=== PATIENT | female | born 1985 | race Caucasian/White ===

== ENCOUNTER 2017-02-18 12:04 | Emergency (ER) | payer OTHER ==
[~2017-02-18] VITALS: Ht 162.6 cm; Wt 90.7 kg
[~2017-02-18 12:04] MED LIST: FOLIC ACID1 MG PO
[2017-02-18] MEDS ORDERED: KEFLEX500 MG PO (15:53)
== END 2017-02-18 15:56 | disposition home or self-care (01) ==
LOC: ER 12:04
DX: N39.0 Urinary tract infection, site not specified (principal)

== ENCOUNTER 2017-05-14 08:33 | Emergency (ER) | payer OTHER ==
[~2017-05-14] VITALS: Ht 162.6 cm; Wt 104.3 kg
[~2017-05-14 08:33] MED LIST changes: +KEFLEX500 MG PO
== END 2017-05-14 13:12 | disposition home or self-care (01) ==
LOC: ER 08:33
DX: R51 Headache (principal); I10 Essential (primary) hypertension

== ENCOUNTER 2017-05-28 23:47 | Emergency (ER) | payer OTHER ==
[~2017-05-28] VITALS: Ht 162.6 cm; Wt 90.7 kg
[2017-05-29] MEDS ORDERED: KETO10TA2 PO (06:04)
[2017-05-29] MEDS ORDERED: ORPHENADRINE C100 MG PO (06:04)
[2017-05-29] MEDS ORDERED: INDERAL LA80 MG PO (06:04)
[2017-05-29] MEDS ORDERED: BUTALB-ACETAMI1 EAC2 PO (06:04)
== END 2017-05-29 06:40 | disposition home or self-care (01) ==
LOC: ER 23:47
DX: G43.809 Other migraine, not intractable, without status migrainosus (principal); M62.838 Other muscle spasm

== ENCOUNTER 2017-09-01 17:01 | Outpatient (CLI) | payer OTHER ==
[~2017-09-01 17:01] MED LIST changes: +BUTALB-ACETAMI1 EAC2 PO; +INDERAL LA80 MG PO; +KETO10TA2 PO; +ORPHENADRINE C100 MG PO
== END 2017-09-01 17:11 | disposition home or self-care (01) ==
LOC: LAB 17:01
DX: R53.1 Weakness (principal); Z11.3 Encounter for screening for infections with a predominantly sexual mode of transmission

== ENCOUNTER 2017-09-26 09:56 | Outpatient (CLI) | payer OTHER | END 2017-09-26 10:02 | disposition home or self-care (01) | LOC: LAB 09:56 | DX: M54.2 Cervicalgia (principal); M62.838 Other muscle spasm; N39.0 Urinary tract infection, site not specified ==

== ENCOUNTER 2017-09-28 08:00 | Outpatient (CLI) | payer OTHER | END 2017-09-28 08:24 | disposition home or self-care (01) | LOC: LAB 08:00 | DX: Z11.3 Encounter for screening for infections with a predominantly sexual mode of transmission (principal) ==

== ENCOUNTER 2018-01-18 19:36 | Emergency (ER) | payer OTHER ==
[~2018-01-18] VITALS: Ht 162.6 cm; Wt 90.7 kg
== END 2018-01-18 20:12 | disposition home or self-care (01) ==
LOC: ER 19:36
DX: H10.33 Unspecified acute conjunctivitis, bilateral (principal)

== ENCOUNTER 2018-03-03 09:21 | Outpatient (CLI) | payer OTHER | END 2018-03-03 09:23 | disposition home or self-care (01) | LOC: LAB 09:21 | DX: Z11.3 Encounter for screening for infections with a predominantly sexual mode of transmission (principal); Z11.4 Encounter for screening for human immunodeficiency virus [HIV] ==

== ENCOUNTER 2018-05-30 09:41 | Outpatient (CLI) | payer OTHER | END 2018-05-30 09:46 | disposition home or self-care (01) | LOC: LAB 09:41 | DX: J11.1 Influenza due to unidentified influenza virus with other respiratory manifestations (principal); J11.89 Influenza due to unidentified influenza virus with other manifestations ==

== ENCOUNTER 2018-09-09 08:47 | Outpatient (CLI) | payer OTHER | END 2018-09-09 08:53 | disposition home or self-care (01) | LOC: LAB 08:47 | DX: E78.49 Other hyperlipidemia (principal); R42 Dizziness and giddiness; Z00.00 Encounter for general adult medical examination without abnormal findings; E55.9 Vitamin D deficiency, unspecified; Z11.3 Encounter for screening for infections with a predominantly sexual mode of transmission; Z11.4 Encounter for screening for human immunodeficiency virus [HIV] ==

== ENCOUNTER 2018-09-12 10:57 | Outpatient (CLI) | payer OTHER | END 2018-09-12 11:04 | disposition home or self-care (01) | LOC: MAMO-SONO 10:57 | DX: N64.4 Mastodynia (principal); Z12.31 Encounter for screening mammogram for malignant neoplasm of breast; Z87.898 Personal history of other specified conditions ==

== ENCOUNTER 2018-12-07 22:28 | Emergency (ER) | payer OTHER ==
[~2018-12-07] VITALS: Ht 162.6 cm; Wt 90.7 kg
[2018-12-08] MEDS ORDERED: ZYNCOF 20-400120 ML PO (00:48)
[2018-12-08] MEDS ORDERED: DOLOGESIC 500-1 EACH PO (00:48)
[2018-12-08] MEDS ORDERED: ZITHROMAX500 MG PO (00:48)
== END 2018-12-08 00:54 | disposition home or self-care (01) ==
LOC: ER 22:28
DX: J06.9 Acute upper respiratory infection, unspecified (principal)

== ENCOUNTER 2019-04-04 09:38 | Emergency (ER) | payer OTHER ==
[~2019-04-04] VITALS: Ht 162.6 cm; Wt 106.6 kg
[~2019-04-04 09:38] MED LIST changes: +DOLOGESIC 500-1 EACH PO; +ZITHROMAX500 MG PO; +ZYNCOF 20-400120 ML PO
[2019-04-04] MEDS ORDERED: ZITHROMAX500 MG PO (13:04)
== END 2019-04-04 13:10 | disposition home or self-care (01) ==
LOC: ER 09:38
DX: B34.9 Viral infection, unspecified (principal); B96.0 Mycoplasma pneumoniae [M. pneumoniae] as the cause of diseases classified elsewhere

== ENCOUNTER 2019-05-03 12:26 | Outpatient (CLI) | payer OTHER | END 2019-05-03 13:00 | disposition home or self-care (01) | LOC: SONOGRAMA 12:26 | DX: O03.30 Unspecified complication following incomplete spontaneous abortion (principal) ==

== ENCOUNTER 2019-05-31 20:08 | Emergency (ER) | payer OTHER ==
[~2019-05-31] VITALS: Ht 162.6 cm; Wt 90.7 kg
== END 2019-05-31 23:38 | disposition home or self-care (01) ==
LOC: ER 20:08
DX: K76.0 Fatty (change of) liver, not elsewhere classified (principal); R10.2 Pelvic and perineal pain

== ENCOUNTER → 2019-09-06 06:06 | Outpatient (CLI) | payer OTHER | END | disposition home or self-care (01) | LOC: LAB 06:06 | PROVIDERS: ATTEND General Practice | DX: R42 Dizziness and giddiness (principal); Z00.00 Encounter for general adult medical examination without abnormal findings; E78.49 Other hyperlipidemia; E55.9 Vitamin D deficiency, unspecified; Z11.3 Encounter for screening for infections with a predominantly sexual mode of transmission; Z11.4 Encounter for screening for human immunodeficiency virus [HIV] ==

== ENCOUNTER 2019-09-28 13:41 | Outpatient (CLI) | payer OTHER | END 2019-09-28 13:43 | disposition home or self-care (01) | LOC: MAMO-SONO 13:41 | PROVIDERS: ATTEND General Practice | DX: Z12.31 Encounter for screening mammogram for malignant neoplasm of breast (principal); N64.4 Mastodynia ==

== ENCOUNTER 2019-11-14 06:27 | Outpatient (CLI) | payer OTHER | END 2019-11-14 06:34 | disposition home or self-care (01) | LOC: LAB 06:27 | PROVIDERS: ATTEND Obstetrics & Gynecology | DX: E04.1 Nontoxic single thyroid nodule (principal); N95.1 Menopausal and female climacteric states; E28.39 Other primary ovarian failure; E55.9 Vitamin D deficiency, unspecified; E78.00 Pure hypercholesterolemia, unspecified ==

== ENCOUNTER 2019-11-14 15:15 | Outpatient (CLI) | payer OTHER | END 2019-11-14 15:22 | disposition home or self-care (01) | LOC: SONOGRAMA 15:15 → MAMO-SONO 15:30 | PROVIDERS: ATTEND Obstetrics & Gynecology | DX: N84.0 Polyp of corpus uteri (principal) ==

== ENCOUNTER 2019-11-27 13:00 | Outpatient (CLI) | payer OTHER | END 2019-11-27 17:57 | disposition home or self-care (01) | LOC: PPH VACUNA 13:00 | DX: Z23 Encounter for immunization (principal) ==

== ENCOUNTER 2019-12-17 20:51 | Emergency (ER) | payer OTHER ==
[~2019-12-17] VITALS: Ht 162.6 cm; Wt 90.7 kg
[2019-12-17] MEDS ORDERED: VISTARIL50 MG PO (23:10)
[2019-12-17] MEDS ORDERED: SALINE NOSE SPR45 ML (23:45)
== END 2019-12-17 23:08 | disposition home or self-care (01) ==
LOC: ER 20:51
DX: R07.89 Other chest pain (principal); F41.8 Other specified anxiety disorders

== ENCOUNTER 2019-12-23 00:23 | Emergency (ER) | payer OTHER ==
[~2019-12-23] VITALS: Ht 160 cm; Wt 104.3 kg
[~2019-12-23 00:23] MED LIST changes: +SALINE NOSE SPR45 ML; +VISTARIL50 MG PO
== END 2019-12-23 01:57 | disposition home or self-care (01) ==
LOC: ER 00:23
DX: I15.8 Other secondary hypertension (principal); F41.0 Panic disorder [episodic paroxysmal anxiety]; F43.8 Other reactions to severe stress; T50.995A Adverse effect of other drugs, medicaments and biological substances, initial encounter; Y92.89 Other specified places as the place of occurrence of the external cause

== ENCOUNTER → 2020-01-04 09:26 | Outpatient (CLI) | payer OTHER | END | disposition home or self-care (01) | LOC: LAB 09:26 | PROVIDERS: ATTEND Obstetrics & Gynecology | DX: N39.0 Urinary tract infection, site not specified (principal) ==

== ENCOUNTER 2020-03-10 11:14 | Emergency (ER) | payer OTHER ==
[~2020-03-10] VITALS: Ht 162.6 cm; Wt 90.7 kg
[2020-03-10] MEDS ORDERED: AMOX1TAB5 PO (15:49)
== END 2020-03-10 15:53 | disposition home or self-care (01) ==
LOC: ER 11:14
DX: U07.1 COVID-19 (principal); B34.9 Viral infection, unspecified

== ENCOUNTER 2020-04-15 22:35 | Emergency (ER) | payer OTHER ==
[~2020-04-15] VITALS: Ht 162.6 cm; Wt 90.7 kg
[~2020-04-15 22:35] MED LIST changes: +AMOX1TAB5 PO
[2020-04-16] MEDS ORDERED: COZAAR25 MG PO (02:22)
== END 2020-04-16 02:33 | disposition home or self-care (01) ==
LOC: ER 22:35
DX: I10 Essential (primary) hypertension (principal)

== ENCOUNTER 2020-04-16 12:27 | Emergency (ER) | payer OTHER ==
[~2020-04-16] VITALS: Ht 162.6 cm; Wt 90.7 kg
[~2020-04-16 12:27] MED LIST changes: +COZAAR25 MG PO
== END 2020-04-16 18:55 | disposition home or self-care (01) ==
LOC: ER 12:27
DX: R51.9 Headache, unspecified (principal)

== ENCOUNTER → 2020-04-18 06:36 | Outpatient (CLI) | payer OTHER | END | disposition home or self-care (01) | LOC: LAB 06:36 | PROVIDERS: ATTEND Internal Medicine | DX: E78.2 Mixed hyperlipidemia (principal); R73.01 Impaired fasting glucose; I10 Essential (primary) hypertension ==

== ENCOUNTER 2020-04-19 23:55 | Emergency (ER) | payer OTHER ==
[~2020-04-19] VITALS: Ht 162.6 cm; Wt 90.7 kg
[2020-04-20] MEDS ORDERED: KETO10TA2 PO (03:25)
[2020-04-20] MEDS ORDERED: ORPHENADRINE C100 MG PO (03:25)
== END 2020-04-20 03:33 | disposition home or self-care (01) ==
LOC: ER 23:55
DX: M54.2 Cervicalgia (principal); R51.9 Headache, unspecified

== ENCOUNTER 2020-05-06 06:08 | Outpatient (CLI) | payer OTHER | END 2020-05-06 06:09 | disposition home or self-care (01) | LOC: LAB 06:08 | PROVIDERS: ATTEND Internal Medicine | DX: D47.2 Monoclonal gammopathy (principal) ==

== ENCOUNTER 2020-05-20 07:22 | Outpatient (CLI) | payer OTHER | END 2020-05-20 07:28 | disposition home or self-care (01) | LOC: RAD 07:22 | PROVIDERS: ATTEND Internal Medicine | DX: I10 Essential (primary) hypertension (principal) ==

== ENCOUNTER 2020-05-23 16:49 | Emergency (ER) | payer OTHER ==
[~2020-05-23] VITALS: Ht 162.6 cm; Wt 102.1 kg
== END 2020-05-23 17:56 | disposition home or self-care (01) ==
LOC: ER 16:49
DX: J03.90 Acute tonsillitis, unspecified (principal)

== ENCOUNTER → 2020-08-04 06:20 | Outpatient (CLI) | payer OTHER ==
[~2020-08-04 06:20] MED LIST changes: +MACROBID 100 M100 MG PO; +MOTION SICKNESS25 M1 PO
== END | disposition home or self-care (01) ==
LOC: LAB 06:20
PROVIDERS: ATTEND General Practice
DX: D64.9 Anemia, unspecified (principal); N39.0 Urinary tract infection, site not specified; R10.9 Unspecified abdominal pain; E03.9 Hypothyroidism, unspecified; E78.5 Hyperlipidemia, unspecified; E55.9 Vitamin D deficiency, unspecified

== ENCOUNTER 2020-09-10 19:35 | Emergency (ER) | payer OTHER ==
[~2020-09-10] VITALS: Ht 160 cm; Wt 90.7 kg
[~2020-09-10 19:35] MED LIST changes: -MACROBID 100 M100 MG PO; -MOTION SICKNESS25 M1 PO
[2020-09-10] MEDS ORDERED: MACROBID 100 M100 MG PO (21:44)
[2020-09-10] MEDS ORDERED: MOTION SICKNESS25 M1 PO (21:46)
== END 2020-09-10 22:35 | disposition home or self-care (01) ==
LOC: ER 19:35
DX: R09.81 Nasal congestion (principal)

== ENCOUNTER 2020-12-30 02:09 | Emergency (ER) | payer OTHER ==
[~2020-12-30] VITALS: Ht 162.6 cm; Wt 9.1 kg
[~2020-12-30 02:09] MED LIST changes: +MACROBID 100 M100 MG PO; +MOTION SICKNESS25 M1 PO
== END 2020-12-30 04:10 | disposition home or self-care (01) ==
LOC: ER 02:09
DX: J02.9 Acute pharyngitis, unspecified (principal); Z03.818 Encounter for observation for suspected exposure to other biological agents ruled out

== ENCOUNTER → 2021-07-14 | Emergency (ER) | payer OTHER ==
[~2021-07-14] VITALS: Ht 162.6 cm; Wt 113.4 kg
== END | disposition home or self-care (01) ==
LOC: ER 20:28
DX: S81.851A Open bite, right lower leg, initial encounter (principal); L03.115 Cellulitis of right lower limb; W64.XXXA Exposure to other animate mechanical forces, initial encounter; Y93.89 Activity, other specified; Y92.832 Beach as the place of occurrence of the external cause; Z88.2 Allergy status to sulfonamides

== ENCOUNTER 2021-09-09 20:15 | Emergency (ER) | payer OTHER ==
[~2021-09-09] VITALS: Ht 162.6 cm; Wt 108.9 kg
== END 2021-09-09 23:52 | disposition home or self-care (01) ==
LOC: ER 20:15
DX: L03.116 Cellulitis of left lower limb (principal); W57.XXXA Bitten or stung by nonvenomous insect and other nonvenomous arthropods, initial encounter

== ENCOUNTER 2021-11-25 09:57 | Emergency (ER) | payer OTHER ==
[~2021-11-25] VITALS: Ht 162.6 cm; Wt 113.4 kg
== END 2021-11-25 13:18 | disposition home or self-care (01) ==
LOC: ER 09:57
DX: B34.9 Viral infection, unspecified (principal); Z88.2 Allergy status to sulfonamides

== ENCOUNTER 2022-01-06 01:13 | Emergency (ER) | payer OTHER ==
[~2022-01-06] VITALS: Ht 162.6 cm; Wt 117.9 kg
[2022-01-06] MEDS ORDERED: ORPHENADRINE C100 MG PO (05:00)
[2022-01-06] MEDS ORDERED: KETO10TA2 PO (05:00)
== END 2022-01-06 05:09 ==
LOC: ER 01:13
DX: G44.209 Tension-type headache, unspecified, not intractable (principal); Z20.822 Contact with and (suspected) exposure to COVID-19

== ENCOUNTER 2022-01-12 07:29 | Outpatient (CLI) | payer OTHER | END 2022-01-12 07:39 | disposition home or self-care (01) | LOC: MAMO-SONO 07:29 | PROVIDERS: ATTEND Obstetrics & Gynecology | DX: Z12.31 Encounter for screening mammogram for malignant neoplasm of breast (principal); N60.11 Diffuse cystic mastopathy of right breast; N60.12 Diffuse cystic mastopathy of left breast ==

== ENCOUNTER → 2022-02-02 | Emergency (ER) | payer OTHER | END | disposition left against medical advice (07) | LOC: ER 20:13 | DX: Z53.21 Procedure and treatment not carried out due to patient leaving prior to being seen by health care provider (principal) ==

== ENCOUNTER 2022-05-31 17:32 | Emergency (ER) | payer OTHER ==
[~2022-05-31] VITALS: Ht 162.6 cm; Wt 113.4 kg
== END 2022-05-31 22:33 | disposition home or self-care (01) ==
LOC: ER 17:32
DX: O20.8 Other hemorrhage in early pregnancy (principal); Z3A.01 Less than 8 weeks gestation of pregnancy; Z88.2 Allergy status to sulfonamides

== ENCOUNTER 2022-07-23 12:47 | Outpatient (CLI) | payer OTHER | END 2022-07-23 12:59 | disposition home or self-care (01) | LOC: SONOGRAMA 12:47 | PROVIDERS: ATTEND Obstetrics & Gynecology | DX: Z34.01 Encounter for supervision of normal first pregnancy, first trimester (principal) ==

== ENCOUNTER 2022-08-16 12:27 | Emergency (ER) | payer OTHER ==
[~2022-08-16] VITALS: Ht 162.6 cm; Wt 117.9 kg
[2022-08-16] MEDS ORDERED: PRENATAL + DHA1 EAC1 (13:05)
== END 2022-08-16 18:44 | disposition home or self-care (01) ==
LOC: ER 12:27
DX: O98.511 Other viral diseases complicating pregnancy, first trimester (principal); U07.1 COVID-19; Z3A.12 12 weeks gestation of pregnancy; Z88.2 Allergy status to sulfonamides

== ENCOUNTER 2022-09-03 14:12 | Outpatient (CLI) | payer OTHER ==
[~2022-09-03 14:12] MED LIST changes: +PRENATAL + DHA1 EAC1
== END 2022-09-03 17:23 | disposition home or self-care (01) ==
LOC: PRENATAL 14:12
PROVIDERS: ATTEND Obstetrics & Gynecology Maternal & Fetal Medicine
DX: O36.80X0 Pregnancy with inconclusive fetal viability, not applicable or unspecified (principal); O30.90 Multiple gestation, unspecified, unspecified trimester; O09.529 Supervision of elderly multigravida, unspecified trimester; Z3A.14 14 weeks gestation of pregnancy

== ENCOUNTER 2022-10-14 08:04 | Outpatient (CLI) | payer OTHER | END 2022-10-14 12:30 | disposition home or self-care (01) | LOC: PRENATAL 08:04 | PROVIDERS: ATTEND Obstetrics & Gynecology Maternal & Fetal Medicine | DX: O35.3XX0 Maternal care for (suspected) damage to fetus from viral disease in mother, not applicable or unspecified (principal); O44.00 Complete placenta previa NOS or without hemorrhage, unspecified trimester; O09.529 Supervision of elderly multigravida, unspecified trimester; O30.90 Multiple gestation, unspecified, unspecified trimester; O99.210 Obesity complicating pregnancy, unspecified trimester; Z3A.20 20 weeks gestation of pregnancy ==

== ENCOUNTER 2022-11-08 08:45 | Outpatient (CLI) | payer OTHER | END 2022-11-08 10:26 | disposition home or self-care (01) | LOC: PRENATAL 08:45 | PROVIDERS: ATTEND Obstetrics & Gynecology Maternal & Fetal Medicine | DX: O26.849 Uterine size-date discrepancy, unspecified trimester (principal); O09.529 Supervision of elderly multigravida, unspecified trimester; O30.90 Multiple gestation, unspecified, unspecified trimester; O99.210 Obesity complicating pregnancy, unspecified trimester; Z3A.23 23 weeks gestation of pregnancy ==

== ENCOUNTER → 2022-12-13 08:04 | Outpatient (CLI) | payer OTHER | END | disposition home or self-care (01) | LOC: PRENATAL 08:04 | PROVIDERS: ATTEND Obstetrics & Gynecology Maternal & Fetal Medicine | DX: O26.849 Uterine size-date discrepancy, unspecified trimester (principal); O09.529 Supervision of elderly multigravida, unspecified trimester; O30.90 Multiple gestation, unspecified, unspecified trimester; O99.210 Obesity complicating pregnancy, unspecified trimester; Z3A.28 28 weeks gestation of pregnancy ==

== ENCOUNTER 2022-12-21 01:32 | Outpatient (CLI) | payer OTHER ==
[2022-12-21 02:26] LABS: URINE APPEARANCE Clear; URINE BILIRRUBIN Negative (NEGATIVE); URINE BLOOD Negative; URINE COLOR Yellow; URINE GLUCOSE Negative (NEGATIVE); URINE LEUKOCYTE Moderate; URINE NITRATE Negative; URINE PROTEIN Trace (NEGATIVE); URINE UROBILINOGEN 0.2 E.U./dl
[2022-12-21 02:30] LABS: URINE EPITHELIAL CELLS 71.5 uL (0.0-38.8); URINE RBC 25.5 uL (0.0-20.8); URINE WBC 25.5 uL (0.0-23.2)
[2022-12-21 02:50] LABS: HEMATOCRIT 28.7 % (36.0-45.00); MEAN CELL VOLUME 89.8 fL (80.00-100.00); MEAN CORPUSCULAR HGB CONC 32.9 g/dl (32.0-36.0); PLATELET COUNT 237 K/uL (150-450); RED CELL DISTRIBUTION WIDTH 14.2 % (11.5-14.5)
[2022-12-21 03:05] LABS: HEMOGLOBIN 9.5 g/dL (12.0-15.00); MEAN CORPUSCULAR HEMOGLOBIN 29.6 pg (27.00-32.0)
[2022-12-21 03:14] LABS: ALBUMIN 2.3 gm/dL (3.4-5.0); BILIRUBIN TOTAL 0.4 mg/dL (0.3-1.2); CALCIUM 8.6 mg/dL (8.5-10.1); GFR 131.27; POTASSIUM 3.69 mEq/L (3.5-5.1); TOTAL PROTEIN 6.3 gm/dL (6.4-8.2)
[2022-12-21 03:18] LABS: CREATININE SERUM 0.53 mg/dL (0.55-1.02)
[2022-12-21] MEDS ORDERED: FERROUS SULFAT325 MG PO (07:18)
== END 2022-12-21 08:28 | disposition home or self-care (01) ==
LOC: OBS/DEL 01:32
PROVIDERS: ATTEND Specialist
DX: O99.013 Anemia complicating pregnancy, third trimester (principal); O09.523 Supervision of elderly multigravida, third trimester; R51.9 Headache, unspecified; Z3A.29 29 weeks gestation of pregnancy; Z88.2 Allergy status to sulfonamides

== ENCOUNTER 2022-12-25 14:08 | Inpatient (IN) | payer OTHER ==
[~2022-12-25] VITALS: Ht 162.6 cm; Wt 131.5 kg
[~2022-12-25 14:08] MED LIST changes: +FERROUS SULFAT325 MG PO
[2022-12-25 18:00] LABS: HEMATOCRIT 29.4 % (36.0-45.00); HEMOGLOBIN 9.7 g/dL (12.0-15.00); MEAN CELL VOLUME 89.5 fL (80.00-100.00); MEAN CORPUSCULAR HEMOGLOBIN 29.5 pg (27.00-32.0); MEAN CORPUSCULAR HGB CONC 32.9 g/dl (32.0-36.0); PLATELET COUNT 238 K/uL (150-450); RED BLOOD COUNT 3.28 M/uL (4.00-6.00); RED CELL DISTRIBUTION WIDTH 14.6 % (11.5-14.5)
[2022-12-25 18:29] LABS: CALCIUM 8.6 mg/dL (8.5-10.1); CREATININE SERUM 0.48 mg/dL (0.55-1.02); GFR 147.18; POTASSIUM 3.65 mEq/L (3.5-5.1)
[2022-12-25 20:59] LABS: ALBUMIN 2.4 gm/dL (3.4-5.0); BILIRUBIN TOTAL 0.29 mg/dL (0.3-1.2); BILIRUBIN,CONJUGATED 0.11 mg/dL (0.0-0.2); BILIRUBIN,UNCONJUGATED 0.18 mg/dL (0.0-0.6); TOTAL PROTEIN 6.4 gm/dL (6.4-8.2)
[2022-12-25 21:09] LABS: PH,URINE 6.5 (5.0-8.0); URINE APPEARANCE Clear; URINE BILIRRUBIN Negative (NEGATIVE); URINE BLOOD Trace; URINE COLOR Yellow; URINE GLUCOSE Negative (NEGATIVE); URINE LEUKOCYTE Moderate; URINE NITRATE Negative; URINE PROTEIN 30 (NEGATIVE)
[2022-12-25 21:15] LABS: URINE BACTERIA 2851.1 uL (0.0-1933); URINE EPITHELIAL CELLS 61.5 uL (0.0-38.8); URINE RBC 15.3 uL (0.0-20.8); URINE WBC 56.1 uL (0.0-23.2)
== END 2022-12-31 13:57 | disposition home or self-care (01) | DRG 833 ==
LOC: ER 14:09 → OB/GYN 20:19
PROVIDERS: General Practice; ADMIT Specialist; ATTEND Specialist
PROC: 4A1HXCZ Monitoring of Products of Conception, Cardiac Rate, External Approach (ICD-10-PCS; principal; 2022-12-25)
PROC: [UNRECOGNIZED PROCEDURE] (2022-12-25)
DX: O26.892 Other specified pregnancy related conditions, second trimester (principal); L03.032 Cellulitis of left toe; Z3A.20 20 weeks gestation of pregnancy; O30.042 Twin pregnancy, dichorionic/diamniotic, second trimester; Z20.822 Contact with and (suspected) exposure to COVID-19; Z88.2 Allergy status to sulfonamides

== ENCOUNTER → 2023-01-10 08:06 | Outpatient (CLI) | payer OTHER | END | disposition home or self-care (01) | LOC: PRENATAL 08:06 | PROVIDERS: ATTEND Obstetrics & Gynecology Maternal & Fetal Medicine | DX: O26.849 Uterine size-date discrepancy, unspecified trimester (principal); O36.8199 Decreased fetal movements, unspecified trimester, other fetus; O09.529 Supervision of elderly multigravida, unspecified trimester; O30.90 Multiple gestation, unspecified, unspecified trimester; O99.210 Obesity complicating pregnancy, unspecified trimester; Z3A.32 32 weeks gestation of pregnancy ==

== ENCOUNTER 2023-01-15 13:23 | Inpatient (IN) | payer OTHER ==
[~2023-01-15] VITALS: Ht 162.6 cm; Wt 137.9 kg
[2023-01-15 14:25] LABS: HEMATOCRIT 30.4 % (36.0-45.00); HEMOGLOBIN 10.1 g/dL (12.0-15.00); MEAN CELL VOLUME 91.7 fL (80.00-100.00); MEAN CORPUSCULAR HEMOGLOBIN 30.5 pg (27.00-32.0); MEAN CORPUSCULAR HGB CONC 33.3 g/dl (32.0-36.0); PLATELET COUNT 216 K/uL (150-450); RED BLOOD COUNT 3.32 M/uL (4.00-6.00); RED CELL DISTRIBUTION WIDTH 16.8 % (11.5-14.5)
[2023-01-15 14:35] LABS: CALCIUM 8.6 mg/dL (8.5-10.1); CREATININE SERUM 0.4 mg/dL (0.55-1.02); GFR 180.6; POTASSIUM 4.12 mEq/L (3.5-5.1)
[2023-01-15 14:40] LABS: INR 0.99; PARTIAL THROMBOPLASTIN TIME 27.9 SECONDS (22.0-34.0); PROTHROMBIN TIME 10.4 SECONDS (9.0-11.5)
[2023-01-15 15:01] LABS: URINE APPEARANCE Clear; URINE BILIRRUBIN Negative (NEGATIVE); URINE BLOOD Small; URINE COLOR Yellow; URINE GLUCOSE Negative (NEGATIVE); URINE LEUKOCYTE Negative; URINE NITRATE Negative
[2023-01-15 15:05] LABS: URINE RBC 36.7 uL (0.0-20.8)
[2023-01-15 15:16] LABS: URINE PROTEIN 100 (NEGATIVE)
[2023-01-15 16:12] LABS: ALT/SGPT 13 U/L (12-78); AST/SGOT 14 U/L (15-37)
== END 2023-01-18 12:12 | disposition home or self-care (01) | DRG 833 ==
LOC: LDR → OB/GYN 13:23
PROVIDERS: Obstetrics & Gynecology; ADMIT Specialist; ATTEND Specialist
PROC: 4A1HXCZ Monitoring of Products of Conception, Cardiac Rate, External Approach (ICD-10-PCS; principal; 2023-01-15)
PROC: BY4GZZZ Ultrasonography of Third Trimester, Multiple Gestation (ICD-10-PCS; 2023-01-17)
PROC: BU4CZZZ Ultrasonography of Uterus and Ovaries (ICD-10-PCS; 2023-01-17)
DX: O60.03 Preterm labor without delivery, third trimester (principal); O36.8132 Decreased fetal movements, third trimester, fetus 2; O30.043 Twin pregnancy, dichorionic/diamniotic, third trimester; O99.213 Obesity complicating pregnancy, third trimester; O26.843 Uterine size-date discrepancy, third trimester; E66.9 Obesity, unspecified; Z3A.33 33 weeks gestation of pregnancy; Z20.822 Contact with and (suspected) exposure to COVID-19

== ENCOUNTER 2023-01-24 10:46 | Inpatient (IN) | payer OTHER ==
[~2023-01-24] VITALS: Ht 162.6 cm; Wt 2.7 kg
[2023-01-24 12:00] LABS: HEMATOCRIT 33.3 % (36.0-45.00); HEMOGLOBIN 11.1 g/dL (12.0-15.00); MEAN CELL VOLUME 89.6 fL (80.00-100.00); MEAN CORPUSCULAR HEMOGLOBIN 29.9 pg (27.00-32.0); MEAN CORPUSCULAR HGB CONC 33.3 g/dl (32.0-36.0); PLATELET COUNT 267 K/uL (150-450); RED BLOOD COUNT 3.72 M/uL (4.00-6.00); RED CELL DISTRIBUTION WIDTH 16.7 % (11.5-14.5)
[2023-01-24 12:04] LABS: URINE APPEARANCE Cloudy; URINE BILIRRUBIN Moderate (NEGATIVE); URINE BLOOD Trace; URINE COLOR Dark Yellow; URINE GLUCOSE Negative (NEGATIVE); URINE LEUKOCYTE Small; URINE NITRATE Negative
[2023-01-24 12:08] LABS: URINE BACTERIA 2420.2 uL (0.0-1933); URINE EPITHELIAL CELLS 156.1 uL (0.0-38.8); URINE RBC 27.3 uL (0.0-20.8); URINE WBC 26.4 uL (0.0-23.2)
[2023-01-24 12:12] LABS: URINE PROTEIN 100 (NEGATIVE)
[2023-01-24 12:28] LABS: INR 0.98; PARTIAL THROMBOPLASTIN TIME 27.9 SECONDS (22.0-34.0); PROTHROMBIN TIME 10.3 SECONDS (9.0-11.5)
[2023-01-24 12:34] LABS: ALBUMIN 2.2 gm/dL (3.4-5.0); BILIRUBIN TOTAL 0.47 mg/dL (0.3-1.2); CALCIUM 8.7 mg/dL (8.5-10.1); CREATININE SERUM 0.49 mg/dL (0.55-1.02); GFR 142.9; GLOBULINA 3.9 G/DL (2.4-3.5); POTASSIUM 3.83 mEq/L (3.5-5.1); TOTAL PROTEIN 6.1 gm/dL (6.4-8.2)
[2023-01-28] MEDS ORDERED: ASPIRIN81 MG PO (06:03)
[2023-01-29 04:00] LABS: MEAN CELL VOLUME 90.3 fL (80.00-100.00); MEAN CORPUSCULAR HEMOGLOBIN 30.1 pg (27.00-32.0); MEAN CORPUSCULAR HGB CONC 33.3 g/dl (32.0-36.0); PLATELET COUNT 219 K/uL (150-450); RED BLOOD COUNT 3.32 M/uL (4.00-6.00); RED CELL DISTRIBUTION WIDTH 16.7 % (11.5-14.5)
[2023-01-31] MEDS ORDERED: IBUPROFEN800 MG PO (08:01)
== END 2023-01-31 14:19 | disposition home or self-care (01) | DRG 783 ==
LOC: O/R 01-28 05:00 → OB/GYN 01-28 05:00
PROVIDERS: ADMIT Specialist; ATTEND Specialist
PROC: 0UB70ZZ Excision of Bilateral Fallopian Tubes, Open Approach (ICD-10-PCS; 2023-01-28)
PROC: 4A1HXCZ Monitoring of Products of Conception, Cardiac Rate, External Approach (ICD-10-PCS; 2023-01-28)
PROC: 10D00Z1 Extraction of Products of Conception, Low, Open Approach (ICD-10-PCS; principal; 2023-01-28 07:00)
DX: O32.1XX2 Maternal care for breech presentation, fetus 2 (principal); O60.14X2 Preterm labor third trimester with preterm delivery third trimester, fetus 2; O41.03X2 Oligohydramnios, third trimester, fetus 2; O30.043 Twin pregnancy, dichorionic/diamniotic, third trimester; Z3A.35 35 weeks gestation of pregnancy; Z37.2 Twins, both liveborn; Z20.822 Contact with and (suspected) exposure to COVID-19; Z30.2 Encounter for sterilization

== ENCOUNTER 2023-02-10 07:03 | Inpatient (IN) | payer OTHER ==
[~2023-02-10] VITALS: Ht 162.6 cm; Wt 127.0 kg
[2023-02-10 07:58] LABS: PH,URINE 6.5 (5.0-8.0); URINE APPEARANCE Clear; URINE BILIRRUBIN Negative (NEGATIVE); URINE BLOOD Large; URINE COLOR Yellow; URINE GLUCOSE Negative (NEGATIVE); URINE LEUKOCYTE Small; URINE NITRATE Negative; URINE PROTEIN 30 (NEGATIVE)
[2023-02-10 08:00] LABS: HEMOGLOBIN 10.2 g/dL (12.0-15.00); MEAN CELL VOLUME 89.2 fL (80.00-100.00); MEAN CORPUSCULAR HEMOGLOBIN 30.4 pg (27.00-32.0); PLATELET COUNT 312 K/uL (150-450); RED BLOOD COUNT 3.36 M/uL (4.00-6.00); RED CELL DISTRIBUTION WIDTH 15.9 % (11.5-14.5)
[2023-02-10 08:01] LABS: URINE BACTERIA 347.6 uL (0.0-1933); URINE EPITHELIAL CELLS 10.6 uL (0.0-38.8)
[2023-02-10 08:26] LABS: INR 1.06; PARTIAL THROMBOPLASTIN TIME 27.3 SECONDS (22.0-34.0); PROTHROMBIN TIME 11.1 SECONDS (9.0-11.5)
[2023-02-10 08:43] LABS: ALBUMIN 2.5 gm/dL (3.4-5.0); BILIRUBIN TOTAL 0.31 mg/dL (0.3-1.2); CALCIUM 8.8 mg/dL (8.5-10.1); CREATININE SERUM 0.63 mg/dL (0.55-1.02); GFR 106.92; GLOBULINA 3.5 G/DL (2.4-3.5); POTASSIUM 4.05 mEq/L (3.5-5.1)
[2023-02-11 22:22] LABS: ABG PH 7.451 (7.35-7.45); ABG pCO2 44.4 mmHg (35-45)
[2023-02-11 22:23] LABS: ABG PO2 89.6 mmHg (80-100); BASE EXCESS 5.5 mmol/l; BICARBONATE 30.2 mmol/l (23-25); SaO2 97.4 %; Tco2 31.6 mmol/l
[2023-02-11 22:25] LABS: allen test SATISFACTORY; o2 21 %; puncture site RADIAL RIGHT
[2023-02-11 23:19] LABS: HEMATOCRIT 29.1 % (36.0-45.00); HEMOGLOBIN 9.8 g/dL (12.0-15.00); MEAN CELL VOLUME 89.4 fL (80.00-100.00); MEAN CORPUSCULAR HEMOGLOBIN 30.1 pg (27.00-32.0); MEAN CORPUSCULAR HGB CONC 33.7 g/dl (32.0-36.0); PLATELET COUNT 316 K/uL (150-450); RED BLOOD COUNT 3.25 M/uL (4.00-6.00); RED CELL DISTRIBUTION WIDTH 16.1 % (11.5-14.5)
[2023-02-11 23:54] LABS: ALBUMIN 2.3 gm/dL (3.4-5.0); BILIRUBIN TOTAL 0.34 mg/dL (0.3-1.2); CALCIUM 7.3 mg/dL (8.5-10.1); CREATININE SERUM 0.83 mg/dL (0.55-1.02); GFR 77.78; GLOBULINA 3.5 G/DL (2.4-3.5); POTASSIUM 4.01 mEq/L (3.5-5.1); TOTAL PROTEIN 5.8 gm/dL (6.4-8.2)
[2023-02-14 07:49] LABS: HEMATOCRIT 31.2 % (36.0-45.00); HEMOGLOBIN 10.2 g/dL (12.0-15.00); MEAN CELL VOLUME 89.6 fL (80.00-100.00); MEAN CORPUSCULAR HEMOGLOBIN 29.1 pg (27.00-32.0); MEAN CORPUSCULAR HGB CONC 32.5 g/dl (32.0-36.0); PLATELET COUNT 329 K/uL (150-450); RED BLOOD COUNT 3.49 M/uL (4.00-6.00); RED CELL DISTRIBUTION WIDTH 16.5 % (11.5-14.5)
[2023-02-14 08:25] LABS: ALBUMIN 2.5 gm/dL (3.4-5.0); BILIRUBIN TOTAL 0.43 mg/dL (0.3-1.2); BILIRUBIN,CONJUGATED 0.12 mg/dL (0.0-0.2); BILIRUBIN,UNCONJUGATED 0.31 mg/dL (0.0-0.6); CALCIUM 7.5 mg/dL (8.5-10.1); CREATININE SERUM 0.62 mg/dL (0.55-1.02); GFR 108.91; POTASSIUM 4.01 mEq/L (3.5-5.1); TOTAL PROTEIN 6.2 gm/dL (6.4-8.2)
[2023-02-14 08:36] LABS: MAGNESIUM 5.2 mg/dL (1.8-2.4)
[2023-02-14 10:45] LABS: PH,URINE 7.5 (5.0-8.0); URINE APPEARANCE Clear; URINE BILIRRUBIN Negative (NEGATIVE); URINE BLOOD Negative; URINE COLOR Yellow; URINE EPITHELIAL CELLS 7.8 uL (0.0-38.8); URINE GLUCOSE Negative (NEGATIVE); URINE LEUKOCYTE Trace; URINE NITRATE Negative; URINE PROTEIN Trace (NEGATIVE); URINE RBC 6.1 uL (0.0-20.8); URINE WBC 51.3 uL (0.0-23.2)
[2023-02-16] MEDS ORDERED: NIFEDIPINE ER30 M1 PO (08:04)
[2023-02-16] MEDS ORDERED: LABETALOL HCL200 MG PO (08:04)
== END 2023-02-16 09:04 | disposition home or self-care (01) | DRG 776 ==
LOC: OBS/DEL 07:03 → LDR 07:23 → OB/GYN 02-11 13:02 → LDR 02-11 22:00 → OB/GYN 02-15 09:54
PROVIDERS: Internal Medicine; Obstetrics & Gynecology; ADMIT Specialist; ATTEND Specialist
PROC: 4A033R1 Measurement of Arterial Saturation, Peripheral, Percutaneous Approach (ICD-10-PCS; principal; 2023-02-11)
PROC: B030ZZZ Magnetic Resonance Imaging (MRI) of Brain (ICD-10-PCS; 2023-02-12)
PROC: B030Y0Z Magnetic Resonance Imaging (MRI) of Brain using Other Contrast, Unenhanced and Enhanced (ICD-10-PCS; 2023-02-12)
PROC: B246ZZZ Ultrasonography of Right and Left Heart (ICD-10-PCS; 2023-02-13)
DX: O14.15 Severe pre-eclampsia, complicating the puerperium (principal); I67.83 Posterior reversible encephalopathy syndrome; O99.355 Diseases of the nervous system complicating the puerperium; O15.2 Eclampsia complicating the puerperium; O99.215 Obesity complicating the puerperium; E66.01 Morbid (severe) obesity due to excess calories; Z20.822 Contact with and (suspected) exposure to COVID-19
CPT/HCPCS: 70544; 70545

== ENCOUNTER → 2023-02-10 | Emergency (ER) | payer OTHER ==
[~2023-02-10] VITALS: Ht 162.6 cm; Wt 127.0 kg
[~2023-02-10] MED LIST changes: +ASPIRIN81 MG PO; +IBUPROFEN800 MG PO
== END | disposition left against medical advice (07) ==
LOC: ER 05:37
DX: Z53.21 Procedure and treatment not carried out due to patient leaving prior to being seen by health care provider (principal)

== ENCOUNTER 2023-02-23 21:14 | Emergency (ER) | payer OTHER ==
[~2023-02-23] VITALS: Ht 162.6 cm; Wt 115.2 kg
[~2023-02-23 21:14] MED LIST changes: +LABETALOL HCL200 MG PO; +NIFEDIPINE ER30 M1 PO
[2023-02-23] MEDS ORDERED: LABETALOL 21 MG/1 ML IV (21:34)
[2023-02-23] MEDS ORDERED: NIFEDIPINE20 MG PO (21:34)
== END 2023-02-24 01:20 ==
LOC: ER 21:15
DX: I10 Essential (primary) hypertension (principal); Z88.2 Allergy status to sulfonamides; O82 Encounter for cesarean delivery without indication

== ENCOUNTER 2023-02-27 22:31 | Emergency (ER) | payer OTHER ==
[~2023-02-27] VITALS: Ht 162.6 cm; Wt 113.4 kg
[~2023-02-27 22:31] MED LIST changes: +LABETALOL 21 MG/1 ML IV; +NIFEDIPINE20 MG PO
[2023-02-28 01:39] LABS: URINE APPEARANCE Clear; URINE BILIRRUBIN Negative (NEGATIVE); URINE BLOOD Trace; URINE COLOR Yellow; URINE GLUCOSE Negative (NEGATIVE); URINE LEUKOCYTE Negative; URINE NITRATE Negative; URINE PROTEIN 30 (NEGATIVE)
[2023-02-28 01:41] LABS: HEMATOCRIT 34.5 % (36.0-45.00); HEMOGLOBIN 11.2 g/dL (12.0-15.00); MEAN CELL VOLUME 87.3 fL (80.00-100.00); MEAN CORPUSCULAR HEMOGLOBIN 28.3 pg (27.00-32.0); MEAN CORPUSCULAR HGB CONC 32.4 g/dl (32.0-36.0); PLATELET COUNT 365 K/uL (150-450); RED BLOOD COUNT 3.95 M/uL (4.00-6.00); RED CELL DISTRIBUTION WIDTH 15.6 % (11.5-14.5)
[2023-02-28 01:43] LABS: URINE BACTERIA 1810.5 uL (0.0-1933); URINE EPITHELIAL CELLS 40.1 uL (0.0-38.8); URINE RBC 10.6 uL (0.0-20.8); URINE WBC 30.2 uL (0.0-23.2)
[2023-02-28 02:00] LABS: ALBUMIN 3.3 gm/dL (3.4-5.0); BILIRUBIN TOTAL 0.21 mg/dL (0.3-1.2); CREATININE SERUM 0.81 mg/dL (0.55-1.02); GLOBULINA 4.2 G/DL (2.4-3.5); POTASSIUM 4.2 mEq/L (3.5-5.1); TOTAL PROTEIN 7.5 gm/dL (6.4-8.2)
== END 2023-02-28 04:38 ==
LOC: ER 22:32
PROVIDERS: General Practice
DX: I10 Essential (primary) hypertension (principal); R53.81 Other malaise; Z88.2 Allergy status to sulfonamides

== ENCOUNTER → 2023-04-11 | Emergency (ER) | payer OTHER | END | disposition left against medical advice (07) | LOC: ER 16:23 | DX: Z53.21 Procedure and treatment not carried out due to patient leaving prior to being seen by health care provider (principal) ==

== ENCOUNTER 2023-09-17 12:59 | Emergency (ER) | payer OTHER ==
[~2023-09-17] VITALS: Ht 162.6 cm; Wt 112.5 kg
[~2023-09-17 12:59] MED LIST changes: +BAYER CHILDREN'81 MG PO; +IRON325 MG PO; +PRENATAL TABLE1 EAC1 PO
[2023-09-17] MEDS ORDERED: NIFEDIPINE20 MG (13:02)
[2023-09-17] MEDS ORDERED: CEFTRIAXONE SODIUM 2,000 MG VIAL IM ONE (13:15)
[2023-09-17] MEDS ORDERED: CEFTRIAXONE SODIUM 2,000 MG VIAL ONE (13:43)
[2023-09-17 14:10] LABS: HEMATOCRIT 35.8 % (36.0-45.00); HEMOGLOBIN 12.3 g/dL (12.0-15.00); MEAN CELL VOLUME 84.6 fL (80.00-100.00); MEAN CORPUSCULAR HEMOGLOBIN 29.2 pg (27.00-32.0); MEAN CORPUSCULAR HGB CONC 34.5 g/dl (32.0-36.0); PLATELET COUNT 412 K/uL (150-450); RED BLOOD COUNT 4.23 M/uL (4.00-6.00)
[2023-09-17 14:23] LABS: ERYTHROCYTE SEDIMENTATION RATE 93 mm/hr
== END 2023-09-17 15:33 | disposition home or self-care (01) ==
LOC: ER 13:00
PROVIDERS: General Practice
DX: L03.116 Cellulitis of left lower limb (principal); I10 Essential (primary) hypertension; Z88.2 Allergy status to sulfonamides

== ENCOUNTER 2023-10-24 08:48 | Outpatient (CLI) | payer OTHER ==
[~2023-10-24 08:48] MED LIST changes: +NIFEDIPINE20 MG
== END 2023-10-24 08:55 | disposition home or self-care (01) ==
LOC: SONOGRAMA 08:48
DX: Z12.39 Encounter for other screening for malignant neoplasm of breast (principal)

== ENCOUNTER 2024-05-03 11:49 | Emergency (ER) | payer OTHER ==
[~2024-05-03] VITALS: Ht 162.6 cm; Wt 108.9 kg
[2024-05-03] MEDS ORDERED: ZESTRIL5 MG (12:16)
[2024-05-03] MEDS ORDERED: CEFTRIAXONE SODIUM 1,000 MG VIAL ONE (12:28)
[2024-05-03] MEDS ORDERED: CEFTRIAXONE SODIUM 1,000 MG VIAL IM ONE (12:30)
[2024-05-03 13:01] LABS: URINE APPEARANCE Cloudy; URINE BILIRRUBIN Small (NEGATIVE); URINE BLOOD Moderate; URINE COLOR Orange; URINE GLUCOSE Negative (NEGATIVE); URINE KETONE Negative (NEGATIVE); URINE LEUKOCYTE Moderate; URINE NITRATE Positive
[2024-05-03 13:07] LABS: URINE EPITHELIAL CELLS 65.5 uL (0.0-38.8); URINE WBC 450.7 uL (0.0-23.2)
[2024-05-03 13:31] LABS: URINE BACTERIA > 9821.5 uL (0.0-1933); URINE CAST 0.29 uL (0.0-1.40); URINE PROTEIN 100 (NEGATIVE)
[2024-05-03] MEDS ORDERED: MACRODANTIN100 MG PO (14:06)
== END 2024-05-03 14:16 | disposition home or self-care (01) ==
LOC: ER 11:52
PROVIDERS: General Practice
DX: N39.0 Urinary tract infection, site not specified (principal); Z88.2 Allergy status to sulfonamides

== ENCOUNTER 2025-01-28 08:02 | Outpatient (CLI) | payer OTHER ==
[~2025-01-28 08:02] MED LIST changes: +MACRODANTIN100 MG PO; +ZESTRIL5 MG
== END 2025-01-28 08:09 | disposition home or self-care (01) ==
LOC: MAMO-SONO 08:02
DX: Z12.31 Encounter for screening mammogram for malignant neoplasm of breast (principal)